=== PATIENT | male | born 1990 | race Caucasian/White ===

== ENCOUNTER → 2019-09-14 | Outpatient (CLI) | payer OTHER ==
[2019-09-14 16:52] LABS: African American GFR (CKD) 77.6 (60.0-200.0); Chol/HDL Ratio 4.88; Lithium 0.4 mmol/L (0.5-1.2); Non-African American GFR(CKD) 66.9 (60.0-200.0)
[2019-09-14 17:25] LABS: Hemoglobin A1C 4.9 % (4.0-6.0)
== END | disposition home or self-care (01) ==
LOC: LABWHC1 10:10
PROVIDERS: ATTEND Psychiatry & Neurology Psychiatry
DX: Z51.81 Encounter for therapeutic drug level monitoring (principal); Z79.899 Other long term (current) drug therapy
CPT/HCPCS: 36415; 80061; 80178; 82565; 82947; 83036; 84439; 84443; 84520